=== PATIENT | female | born 1950 | race Caucasian/White ===

== ENCOUNTER → 2021-06-18 | Outpatient (CLI) | payer MEDICARE, BC | LOC: COL.RAD 05-27 14:00 | DX: F01.50 Vascular dementia, unspecified severity, without behavioral disturbance, psychotic disturbance, mood disturbance, and anxiety (principal); G31.9 Degenerative disease of nervous system, unspecified; I67.82 Cerebral ischemia | CPT/HCPCS: A9585 ==

== ENCOUNTER → 2022-04-06 | Outpatient (CLI) | payer MEDICARE, BC | LOC: MHCPAIN 14:00 | DX: M54.50 Low back pain, unspecified (principal); M53.3 Sacrococcygeal disorders, not elsewhere classified; M79.2 Neuralgia and neuritis, unspecified; V89.2XXS Person injured in unspecified motor-vehicle accident, traffic, sequela | CPT/HCPCS: G0463 ==

== ENCOUNTER → 2022-05-18 | Outpatient (CLI) | payer MEDICARE, BC | LOC: MHCPAIN 09:45 | DX: M79.2 Neuralgia and neuritis, unspecified (principal); M54.50 Low back pain, unspecified; M51.36 Other intervertebral disc degeneration, lumbar region; M41.80 Other forms of scoliosis, site unspecified | CPT/HCPCS: G0463 ==

== ENCOUNTER → 2023-01-11 | Outpatient (CLI) | payer MEDICARE, BC | LOC: MHCPAIN 12:43 | DX: M54.50 Low back pain, unspecified (principal); M53.3 Sacrococcygeal disorders, not elsewhere classified; M54.32 Sciatica, left side | CPT/HCPCS: G0463 ==